=== PATIENT | female | born 1980 | race Caucasian/White ===

== ENCOUNTER 2017-01-09 16:23 | Emergency (ER) | payer OTHER ==
[~2017-01-09] VITALS: Ht 172.7 cm; Wt 75.0 kg
[2017-01-09 16:27] VITALS: BP 146/76; PULSE 76; RESP 16; O2SAT 100
[2017-01-09 17:37] LABS: BASOPHILS % (AUTO) 0.2 % (0-3); EOSINOPHILS % (AUTO) 0.8 % (0-5); MONOCYTES % (AUTO) 8.1 % (4-12); Mean Corpuscular Hemoglobin 30.8 pg (27.0-35.0); Mean Corpuscular Volume 89.6 fL (81-100); NEUTROPHILS % (AUTO) 69.4 % (40-74); Platelet Count 241 bil/L (150-400)
[2017-01-09 17:49] LABS: APPEARANCE,URINE CLEAR (CLEAR,HAZY); COLOR,URINE YELLOW (YELLOW); OCCULT BLOOD,URINE NEGATIVE (NEGATIVE); PH,URINE 5.5 (5.0-8.0); UROBILINOGEN,URINE NORMAL (NORMAL)
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
[2017-01-09 19:25] VITALS: BP 117/73; PULSE 79; RESP 16; O2SAT 99
== END 2017-01-09 19:15 | disposition home or self-care (01) ==
LOC: SED 16:23
DX: R33.9 Retention of urine, unspecified (principal); Z3A.14 14 weeks gestation of pregnancy